=== PATIENT | male | born 1985 | race African-American/Black ===

== ENCOUNTER 2025-05-24 10:45 | Emergency (ER) | payer OTHER ==
[~2025-05-24] VITALS: Ht 175.3 cm; Wt 110.5 kg
[2025-05-24] MEDS: ACETAMINOPHEN 500 MG TAB PO ONE (11:13)
[2025-05-24] MEDS: KETOROLAC 60 MG/2 ML VIAL IM ONE (11:14)
[2025-05-24 12:56] VITALS: BP 126/86; TEMP 97.6; O2SAT 100
[2025-05-24] MEDS ORDERED: MEDR4PAK PO (13:08)
[2025-05-24] MEDS ORDERED: METH-1164 PO (13:08)
== END 2025-05-24 13:23 | disposition home or self-care (01) ==
LOC: M ED 10:45
DX: M51.16 Intervertebral disc disorders with radiculopathy, lumbar region (principal)
CPT/HCPCS: 72131; 96372; 99283; J1885

== ENCOUNTER 2025-05-26 20:38 | Emergency (ER) | payer OTHER ==
[~2025-05-26] VITALS: Ht 175.3 cm; Wt 110.3 kg
[~2025-05-26 20:38] MED LIST: MEDR4PAK PO; METH-1164 PO
[2025-05-27] MEDS: PERCOCET 5MG/325MG TAB PO ONE (01:24)
[2025-05-27] MEDS: KETOROLAC 60 MG/2 ML VIAL IM ONE (01:25)
[2025-05-27] MEDS: diazePAM 2 MG TAB PO ONE (02:16)
[2025-05-27] MEDS ORDERED: NAPR-837 PO (10:56)
[2025-05-27 11:18] VITALS: BP 136/87; TEMP 97.1; O2SAT 100
== END 2025-05-27 11:18 | disposition home or self-care (01) ==
LOC: M ED 20:38
DX: M51.26 Other intervertebral disc displacement, lumbar region (principal); M51.360 Other intervertebral disc degeneration, lumbar region with discogenic back pain only; M48.062 Spinal stenosis, lumbar region with neurogenic claudication; G95.29 Other cord compression
CPT/HCPCS: 72148; 96372; 99284; J1885